=== PATIENT | male | born 1940 | race Caucasian/White ===

== ENCOUNTER → 2016-06-10 | Day surgery (SDC) | payer OTHER ==
[~2016-06-10] MED LIST: APIX2.5T PO; BUPIVACAINE HCL PF 0.5% 10 ML VIAL ONE; FURO20TA PO; GABA100C4 PO; LACTATED RINGER'S 1000 ML INJ 1,000 ML ONE; LISI-357 PO; METO50TA PO; MIDAZOLAM HCL 2 MG/2 ML VIAL ONE; NORC7.5T PO; OMEP20TA PO; PERI8.6T PO; PRAV40TA2 PO; PROPOFOL 200 MG/20 ML AMP IV ONE; VITA-13 PO; VITA100017 PO; VITA400C70 PO; Z.0.COMMODE-3:1; Z.0.CPM; Z.0.WALKERFRONT; ceFAZolin INJ 1,000 MG VIAL ONE
--- NOTE | 2016-06-11 20:16 | MP ---
cc: JORJE ALMAZAN M.D. DATE OF SURGERY: 06/10/2016 PREOPERATIVE DIAGNOSIS Right hand carpal tunnel syndrome. POSTOPERATIVE DIAGNOSES Right hand carpal tunnel syndrome. PROCEDURE Right hand carpal tunnel release. SURGEON Dr. Jorje Almazan ANESTHESIA General. BLOOD LOSS Less than 10 cc. TOURNIQUET TIME 0. COMPLICATIONS None. JUSTIFICATION The patient is a 75-year-old male with a history of right hand pain, numbness and carpal tunnel syndrome. He was evaluated by the undersigned at the [facility]. The patient was counseled as to the risks, benefits and alternatives of the above-named proposed surgical procedure. He did wish to proceed with surgery. PROCEDURE IN DETAIL Written consent was obtained. The patient identified by name, taken to the operating room and placed supine on the operating table. General TIVA anesthesia was administered as well as 1 gram of IV Ancef. The right upper extremity prepped and draped using isopropyl alcohol, Hibiclens solution and DuraPrep solution. After appropriate timeout was performed, approximately 5 cc of 0.25% plain Marcaine was injected in line with the palmar crease. A longitudinal incision was made over the ulnar border of the palmar crease. Dissection was carried down to the level of the transverse carpal ligament. The transverse carpal ligament was released throughout its entirety to allow exposure of the median nerve. The median nerve was protected throughout the carpal tunnel release. Surgical wounds thoroughly irrigated with sterile saline solution. The subcutaneous tissue layer was closed with 4-0 Vicryl suture. The skin was closed with 4-0 nylon suture. Sterile dressing applied. The patient tolerated the procedure well with no intraoperative complication noted. MD YUKI Mata/JEANETTE /2:58 PM /7:44 PM
== END | disposition home or self-care (01) ==
LOC: ESDC 12:55
PROVIDERS: ATTEND Orthopaedic Surgery Sports Medicine
DX: G56.01 Carpal tunnel syndrome, right upper limb (principal)
CPT/HCPCS: 01810; 64721; J0690; J2250; J3010; J7120